=== PATIENT | male | born 1990 | race Caucasian/White ===

== ENCOUNTER 2017-09-13 21:54 | Emergency (ER) | payer SELFPAY ==
[~2017-09-13] VITALS: Ht 180.3 cm; Wt 77.1 kg
[2017-09-13 22:03] VITALS: Ht 180.3 cm; Wt 77.1 kg
[2017-09-14 06:52] VITALS: BP 129/74
== END 2017-09-14 06:52 | disposition home or self-care (01) ==
LOC: ED 21:54
DX: F10.129 Alcohol abuse with intoxication, unspecified (principal); R40.4 Transient alteration of awareness
CPT/HCPCS: 82962; G0480; J7030